=== PATIENT | male | born 1965 | race African-American/Black ===

== ENCOUNTER 2019-12-18 10:58 | Emergency (ER) | payer OTHER ==
--- NOTE | 2019-12-18 11:18 | RADIOLOGY REPORT (SQ) ---
EXAM DESCRIPTION: CHEST SINGLE VIEW IMAGES COMPLETED DATE/TIME: 12/18/2019 11:10 am REASON FOR STUDY: chest pain COMPARISON: None. EXAM PARAMETERS: NUMBER OF VIEWS: One view. TECHNIQUE: Single frontal radiographic view of the chest acquired. RADIATION DOSE: NA LIMITATIONS: None. FINDINGS: LUNGS AND PLEURA: No opacities, masses or pneumothorax. No pleural effusion. MEDIASTINUM AND HILAR STRUCTURES: No masses. Contour normal. HEART AND VASCULAR STRUCTURES: Heart normal in size. Normal vasculature. BONES: No acute findings. HARDWARE: None in the chest. OTHER: No other significant finding. IMPRESSION: NO ACUTE RADIOGRAPHIC FINDING IN THE CHEST. TECHNICAL DOCUMENTATION: JOB ID: [id number] 2010 [employer]- All Rights Reserved Reading location - IP/workstation name: [email or web address]
[2019-12-18] MEDS ORDERED: LIDOCAINE 2% VISCOUS SOLN 15 ML UDCUP PO ONE ×2 (11:27→12:41)
[2019-12-18] MEDS ORDERED: MAG HYDROX/AL HYDROX/SIMETH SUSP 30 ML UDCUP PO ONE ×2 (11:27→12:41)
[2019-12-18] MEDS ORDERED: METOCLOPRAMIDE HCL ORAL SOLN 10 MG/10 ML UDCUP PO ONE ×2 (11:27→12:41)
[2019-12-18 11:28] LABS: ABSOLUTE EOSINOPHILS # (AUTO) 0.1 10^3/uL (0.0-0.6); ABSOLUTE LYMPHOCYTES (AUTO) 1.7 10^3/uL (0.5-4.7); ABSOLUTE MONOCYTES (AUTO) 0.5 10^3/uL (0.1-1.4); ABSOLUTE NEUT (AUTO) 3.5 10^3/uL (1.7-8.2); BASOPHILS % (AUTO) 0.3 % (0-2); EOSINOPHILS % (AUTO) 2.1 % (0-6); HEMATOCRIT 45.9 % (37.9-51.0); HEMOGLOBIN 15.3 g/dL (13.5-17.0); LYMPHOCYTES % (AUTO) 29.1 % (13-45); MEAN CORPUSCULAR HEMOGLOBIN 26.9 pg (27.0-33.4); MEAN CORPUSCULAR HGB CONC 33.4 g/dL (32.0-36.0); MEAN CORPUSCULAR VOLUME 81 fl (80-97); MONOCYTES % (AUTO) 8.9 % (3-13); PLATELET COUNT 304 10^3/uL (150-450); RED CELL DISTRIBUTION WIDTH 14.3 % (11.5-14.0); SEGMENTED NEUTROPHILS % (AUTO) 59.6 % (42-78); TOTAL CELLS COUNTED % (AUTO) 100 %; WHITE BLOOD COUNT 5.9 10^3/uL (4.0-10.5)
--- NOTE | 2019-12-18 11:30 | ER Document Report ---
ED Medical Screen (RME) - General Chief Complaint: Chest Pain Stated Complaint: CHEST PAIN Time Seen by Provider: 12/18/19 11:12 Primary Care Provider: DESHAWN KIM [Primary Care Provider] - Follow up as needed Notes: Patient is a 54-year-old male brought in by EMS for chest pain that started a week ago. EMS ended up giving him sublingual nitroglycerin which eased off his chest pain a little bit and then ended up putting him on a nitroglycerin drip. Patient has been taking diclofenac since May. Denies any melena stools. Exam: S1, S2. Sinus rhythm on the monitor. Upon evaluation, patient was still on nitroglycerin drip. Nitroglycerin drip turned off, as blood pressure dropped down to systolic of 103. We will give the patient a GI cocktail. I have greeted and performed a rapid initial assessment of this patient. A comprehensive ED assessment and evaluation of the patient, analysis of test results and completion of medical decision making process will be conducted by an additional ED providers. Past Medical History - Social History Chew tobacco use (# tins/day): No Frequency of alcohol use: None Drug Abuse: None Physical Exam - Vital signs Vitals: Temp Pulse Ox 98.5 F 100 12/18/19 10:59 12/18/19 10:59 Course - Vital Signs Vital signs: Temp Pulse Resp BP Pulse Ox 98.5 F 100 12/18/19 10:59 12/18/19 10:59 - Laboratory Result Diagrams: 12/18/19 10:35 12/18/19 10:35 Doctor's Discharge - Discharge Referrals: DESHAWN KIM [Primary Care Provider] - Follow up as needed
[2019-12-18 12:02] LABS: ALBUMIN 4.6 g/dL (3.5-5.0); ALKALINE PHOSPHATASE 68 U/L (38-126); ANION GAP 12 (5-19); ASPARTATE AMINO TRANSFERASE 33 U/L (17-59); BILIRUBIN,TOTAL 0.6 mg/dL (0.2-1.3); BLOOD UREA NITROGEN 23 mg/dL (7-20); CARBON DIOXIDE 22 mmol/L (22-30); CHLORIDE 100 mmol/L (98-107); CREATINE KINASE 68 U/L (55-170); GLUCOSE 116 mg/dL (75-110); TOTAL PROTEIN 8.7 g/dL (6.3-8.2)
[2019-12-18 12:03] LABS: CREATINE KINASE MB 0.46 ng/mL (<4.55); TROPONIN I < 0.012 ng/mL
[2019-12-18] MEDS ORDERED: ONDANSETRON HCL INJ/PF 4 MG/2 ML SDV IV ONE (12:17)
[2019-12-18] MEDS ORDERED: NORMAL SALINE 1000 ML 1,000 ML IV ONE (12:41)
[2019-12-18] MEDS ORDERED: MORPHINE SULFATE 10 MG/ML INJ IV ONE (12:42)
[2019-12-18] MEDS ORDERED: PANTOPRAZOLE SODIUM 40 MG VIAL IV ONE (12:47)
--- NOTE | 2019-12-18 15:11 | EKG REPORT ---
SEVERITY:- ABNORMAL ECG - SINUS RHYTHM LEFT VENTRICULAR HYPERTROPHY : Confirmed by: Beck Gutierres MD 18-Dec-2019 15:10:08
--- NOTE | 2019-12-18 15:57 | RADIOLOGY REPORT (SQ) ---
EXAM DESCRIPTION: CT CHEST WITH; CT ABD/PELVIS WITH IV ORAL IMAGES COMPLETED DATE/TIME: 12/18/2019 3:34 pm; 12/18/2019 3:24 pm REASON FOR STUDY: chest pain/radiating to back; abd pain radiating to back COMPARISON: None. CONTRAST TYPE AND DOSE: contrast/concentration: Isovue 300.00 mmol/ml; Total Contrast Delivered: 100 .0 ml; Total Saline Delivered: 66.1 ml RENAL FUNCTION: BUN 23, creatinine 1.63 TECHNIQUE: CT scan of the chest performed using helical scanning technique with dynamic intravenous contrast injection. Images reviewed with lung, soft tissue and bone windows. Reconstructed coronal a nd sagittal MPR images reviewed. All images stored on PACS. CT scan of the abdomen and pelvis performed with intravenous and with oral contrastusing helical scan tacos technique with dynamic intravenous contrast injection. Images reviewed with lung, soft tissue a nd bone windows. Reconstructed coronal and sagittal MPR images reviewed. Delayed images for evaluat ion of the urinary system also acquired and evaluated. All images stored on PACS. All CT scanners at this facility use dose modulation, iterative reconstruction, and/or weight based d osing when appropriate to reduce radiation dose to as low as reasonably achievable (ALARA). [facility]: Dose Right [facility]: CareDose [facility]: Dose Right [facility]: Teradose 4D [facility]: Smart [employer] AS RADIATION DOSE: CT Rad equipment meets quality standard of care and radiation dose reduction techniq ues were employed. CTDIvol: 6.9 - 9.0 mGy. DLP: 1005 mGy-cm. . LIMITATIONS: None. FINDINGS: CHEST: LUNGS AND PLEURA: No opacities, nodules, masses. No pneumothorax. No effusions. HILAR AND MEDIASTINAL STRUCTURES: No identified masses or abnormal nodes. HEART AND VASCULAR STRUCTURES: No aneurysm or dissection. No central pulmonary emboli. No pericardi al effusion. HARDWARE: None. THYROID AND OTHER SOFT TISSUES: No masses. No adenopathy. BONES: No significant finding. OTHER: No other significant finding. ABDOMEN AND PELVIS: LIVER: Small hepatic cysts. No suspicious findings. SPLEEN: Normal size. No focal lesions. PANCREAS: No masses. No significant calcifications. No adjacent inflammation or peripancreatic fluid collections. Pancreatic duct not dilated. GALLBLADDER: No identified stones by CT criteria. No inflammatory changes to suggest cholecystitis. ADRENAL GLANDS: No significant masses or asymmetry. RIGHT KIDNEY AND URETER: No solid masses. No significant calcification. No hydronephrosis or hydroure ter. LEFT KIDNEY AND URETER: No solid masses. No significant calcification. No hydronephrosis or hydrouret er. AORTA AND VESSELS: No aneurysm. No dissection. Renal arteries, SMA, celiac without stenosis. RETROPERITONEUM: No retroperitoneal adenopathy, hemorrhage or masses. BOWEL AND PERITONEAL CAVITY: No masses or inflammatory changes. No free fluid or peritoneal masses. APPENDIX: Not visualized. ABDOMINAL WALL: No masses. No hernias. PELVIS: No mass or free fluid. Normal bladder. BONES: No significant or acute findings. OTHER: No other significant finding. IMPRESSION: NORMAL CT OF THE CHEST WITH IV CONTRAST. SMALL HEPATIC CYSTS. NO ACUTE FINDINGS IN THE ABDOMEN OR PELVIS. TECHNICAL DOCUMENTATION: JOB ID: [id number] Quality ID # [id number]: Final reports with documentation of one or more dose reduction techniques (e.g., Au tomated exposure control, adjustment of the mA and/or kV according to patient size, use of iterative reconstruction technique) 2010 [employer]- All Rights Reserved Reading location - IP/workstation name: [email or web address]
--- NOTE | 2019-12-18 18:00 | ER Document Report ---
Entered by NASIR ALBRECHT SCRIBE 12/18/19 1221 Acting as scribe for:KATIE ELLIS MD ED Cardiac - General Chief Complaint: Chest Pain Stated Complaint: CHEST PAIN Time Seen by Provider: 12/18/19 11:12 Primary Care Provider: DESHAWN KIM [NO LOCAL MD] - Follow up as needed Information source: Patient Notes: This 54-year-old male patient presents to the emergency department today with complaints of a one-week history of chest pain and epigastric abdominal pain t hat radiates to his back. Patient reports that when the pain began he was at his house sleeping. Patient states he had similar pain 10 to 15 years ago but it was not as severe and it was GERD. Patient indicates that swallowing food or liquids exacerbates his pain. Patient also mentions night sweats, weight loss that he is unable to quantify, fevers, and chills. Patient denies any throat pain, diarrhea, or black/tarry stools. - Related Data Allergies/Adverse Reactions: No Known Allergies Allergy (Unverified 12/18/19 12:01) Past Medical History - General Information source: Patient - Social History Smoking Status: Current Some Day Smoker - says he quit one week ago when pain began Cigarette use (# per day): Yes Chew tobacco use (# tins/day): No Frequency of alcohol use: None Drug Abuse: None Lives with: Family Family History: Reviewed & Not Pertinent Patient has homicidal ideation: No Musculoskeletal Medical History: Reports Hx Arthritis Surgical Hx: Negative Review of Systems - Review of Systems Constitutional: No symptoms reported EENT: No symptoms reported Cardiovascular: See HPI, Chest pain Respiratory: No symptoms reported Gastrointestinal: See HPI, Abdominal pain, Other - pain with swallowing Genitourinary: No symptoms reported Male Genitourinary: No symptoms reported Musculoskeletal: No symptoms reported Skin: No symptoms reported Hematologic/Lymphatic: No symptoms reported Neurological/Psychological: No symptoms reported -: Yes All other systems reviewed and negative Physical Exam - Vital signs Vitals: Temp Pulse Ox 98.5 F 100 12/18/19 10:59 12/18/19 10:59 - Notes Notes: Physical Exam: General: Alert, appears well. HEENT: Normocephalic. Atraumatic. PERRL. Extraocular movements intact. Oropharynx clear. Neck: Supple. Non-tender. Respiratory: No respiratory distress. Clear and equal breath sounds bilaterally. Cardiovascular: Regular rate and rhythm. Abdominal: Epigastric tenderness with palpation. No distension. Normal Bowel Sounds. Back: No gross abnormalities. Extremities: Moves all four extremities. Upper extremities: Normal inspection. Normal ROM. Lower extremities: Normal inspection. No edema. Normal ROM. Neurological: Normal cognition. AAOx4. Normal speech. Psychological: Normal affect. Normal Mood. Skin: Warm. Dry. Normal color. Course - Re-evaluation Re-evalutation: 12/18/19 17:50 Patient resting better at this time not showing signs of distress pain is improved. 12/18/19 17:53 Inasmuch as patient has an elevated calcium and elevated total protein it would be babcock for patient to follow-up with primary care doctor for further evaluations and of his calcium and elevated protein and pain in his back and abdomen. No acute process was noted on today's evaluation. 12/18/19 17:58 I recommended that patient follow-up with a hematology oncology doctor regarding the elevated protein elevated calcium in a patient with chronic back pain chest pain abdominal pain and night sweats - Vital Signs Vital signs: Temp Pulse Resp BP Pulse Ox 98.5 F 13 115/88 H 96 12/18/19 10:59 12/18/19 14:01 12/18/19 14:01 12/18/19 14:01 12/18/19 17:51 Vital signs stable - Laboratory Result Diagrams: 12/18/19 10:35 12/18/19 10:35 Laboratory results interpreted by me: 12/18/19 12/18/19 10:35 10:35 RBC 5.70 H MCH 26.9 L RDW 14.3 H Sodium 134.1 L BUN 23 H Creatinine 1.63 H Est GFR ( Amer) 54 L Est GFR (MDRD) Non-Af 44 L Glucose 116 H Calcium 11.0 H ALT 52 H Total Protein 8.7 H 12/18/19 17:51 Labs within normal range except for elevated creatinine 1.6. Also patient has noted calcium 11.0 and total protein elevated at 8.7. - Diagnostic Test Radiology reviewed: Image reviewed, Reports reviewed Radiology results interpreted by me: 12/18/19 17:52 CT of chest with contrast shows no acute process CT abdomen pelvis with IV and oral contrast shows no acute process. Of note there is some hepatic cysts present otherwise no other acute process. - EKG Interpretation by Me Additional EKG results interpreted by me: 12/18/19 17:53 Twelve-lead EKG shows normal sinus rhythm and rate left ventricular hypertrophy noted by voltage criteria. No other acute ST-T wave changes. Discharge - Discharge Clinical Impression: Back pain, Chest pain, Abdominal pain, Nausea & vomiting, Hypercalcemia, Elevated total protein Condition: Stable Disposition: HOME, SELF-CARE Instructions: Vomiting ([facility]), Chest Pain of Unclear Cause ([facility]), Prilosec (Acid Pump Inhibitor) ([facility]) Prescriptions: Omeprazole 40 mg PO DAILY #30 capsule. Ondansetron [Zofran Odt 4 mg Tablet] 1 - 2 tab PO Q4H PRN #15 tab.rapdis PRN Reason: For Nausea/Vomiting Referrals: LOCALMD,NO [NO LOCAL MD] - Follow up as needed ALBAN GARCIA MD [ACTIVE STAFF] - Follow up in 3-5 days I personally performed the services described in the documentation, reviewed and edited the documentation which was dictated to the scribe in my presence, and it accurately records my words and actions.
[2019-12-18 18:39] VITALS: BP 125/86
== END 2019-12-18 18:36 | disposition home or self-care (01) ==
LOC: ER 10:58
DX: E83.52 Hypercalcemia (principal); R79.89 Other specified abnormal findings of blood chemistry; R07.9 Chest pain, unspecified; M54.9 Dorsalgia, unspecified; R10.9 Unspecified abdominal pain; R11.2 Nausea with vomiting, unspecified; F17.210 Nicotine dependence, cigarettes, uncomplicated
CPT/HCPCS: 93005; 99285; 96361; 96374; 96375; 36415; 82553; 82550; 83690; 85025; 80053; 84484; 71045; 71260; 74177; 93010; J3490; J2270; C9113; J2405; J7030

== ENCOUNTER 2019-12-26 04:16 | Emergency (ER) | payer OTHER ==
[2019-12-26 04:24] VITALS: BP 136/77
[2019-12-26] MEDS ORDERED: HYDROMORPHONE HCL INJ/PF 2 MG/ML AMPULE IV ONE ×4 (06:17→13:57)
[2019-12-26] MEDS ORDERED: NORMAL SALINE 500 ML IV ONE (06:18)
[2019-12-26 06:53] LABS: ABSOLUTE BASOPHILS # (AUTO) 0.1 10^3/uL (0.0-0.2); ABSOLUTE EOSINOPHILS # (AUTO) 0.2 10^3/uL (0.0-0.6); ABSOLUTE LYMPHOCYTES (AUTO) 1.5 10^3/uL (0.5-4.7); ABSOLUTE MONOCYTES (AUTO) 0.7 10^3/uL (0.1-1.4); ABSOLUTE NEUT (AUTO) 5.6 10^3/uL (1.7-8.2); BASOPHILS % (AUTO) 0.7 % (0-2); EOSINOPHILS % (AUTO) 1.9 % (0-6); HEMATOCRIT 42.4 % (37.9-51.0); HEMOGLOBIN 14.2 g/dL (13.5-17.0); LYMPHOCYTES % (AUTO) 19.1 % (13-45); MEAN CORPUSCULAR HEMOGLOBIN 26.7 pg (27.0-33.4); MEAN CORPUSCULAR HGB CONC 33.5 g/dL (32.0-36.0); MEAN CORPUSCULAR VOLUME 80 fl (80-97); MONOCYTES % (AUTO) 8.8 % (3-13); PLATELET COUNT 394 10^3/uL (150-450); RED BLOOD COUNT 5.31 10^6/uL (4.35-5.55); RED CELL DISTRIBUTION WIDTH 14.6 % (11.5-14.0); SEGMENTED NEUTROPHILS % (AUTO) 69.5 % (42-78); TOTAL CELLS COUNTED % (AUTO) 100 %
[2019-12-26 07:14] LABS: APPEARANCE,URINE CLEAR; BILIRUBIN,URINE NEGATIVE (NEGATIVE); COLOR,URINE YELLOW; GLUCOSE, URINE NEGATIVE (NEGATIVE); KETONES,URINE NEGATIVE (NEGATIVE); LEUKOCYTE ESTERASE,URINE NEGATIVE (NEGATIVE); NITRITE,URINE NEGATIVE (NEGATIVE); PROTEIN,URINE NEGATIVE (NEGATIVE); URINE SPECIFIC GRAVITY 1.013; UROBILINOGEN,URINE NEGATIVE mg/dL (<2.0)
[2019-12-26 07:24] LABS: ALBUMIN 4.4 g/dL (3.5-5.0); ALKALINE PHOSPHATASE 72 U/L (38-126); ANION GAP 10 (5-19); ASPARTATE AMINO TRANSFERASE 28 U/L (17-59); BILIRUBIN,TOTAL 0.5 mg/dL (0.2-1.3); BLOOD UREA NITROGEN 18 mg/dL (7-20); CARBON DIOXIDE 26 mmol/L (22-30); CHLORIDE 101 mmol/L (98-107); GLUCOSE 102 mg/dL (75-110); TOTAL PROTEIN 7.8 g/dL (6.3-8.2)
[2019-12-26 07:33] LABS: URINE AMPHETAMINES SCREEN NEGATIVE; URINE BARBITURATES SCREEN NEGATIVE; URINE BENZODIAZEPINES SCREEN NEGATIVE; URINE COCAINE SCREEN NEGATIVE; URINE MARIJUANA (THC) SCREEN NEGATIVE; URINE METHADONE SCREEN NEGATIVE; URINE PHENCYCLIDINE SCREEN NEGATIVE
[2019-12-26] MEDS ORDERED: PSEUDOEPHEDRINE HCL 30 MG TABLET PO ONE (10:06)
[2019-12-26] MEDS ORDERED: TERBUTALINE SULFATE INJ/PF 1 MG/1 ML SDV SUBCUT ONE (10:06)
[2019-12-26] MEDS ORDERED: LIDOCAINE 1% INJ-PF (10 MG/ML) 30 ML SDV INJ ONE (11:36)
[2019-12-26] MEDS ORDERED: PHENYLEPHRINE HCL INJ/PF 10 MG/1 ML SDV IV ONE (11:45)
[2019-12-26] MEDS: LIDOCAINE 2% INJ-PF (20 MG/ML) 2 ML AMPUL INJ ONE ×2 (12:09→12:58)
[2019-12-26] MEDS ORDERED: FENTANYL CITRATE INJ/PF 100 MCG/2 ML AMPUL ONE (12:26)
--- NOTE | 2019-12-26 14:16 | ER Document Report ---
Entered by MARYLOU DAY SCRIBE 12/26/19 0613 Acting as scribe for:KATIE ELLIS MD ED General - General Chief Complaint: Penile Problem Stated Complaint: PENILE PROBLEM [facility]: [facility] [[facility]] - Follow up as needed Information source: Patient Notes: This 54 year old male patient presents to the emergency department today with penile pain. Patient reports an erection the past x2 days, with pain. Patient states this has not happened before and denies sexual intercourse when these symptoms began. Patient states he has been on Trazadone the past x2 years to help him sleep and this may be a reason for his symptoms. - Related Data Allergies/Adverse Reactions: No Known Allergies Allergy (Unverified 12/18/19 12:01) Past Medical History - General Information source: Patient - Social History Smoking Status: Current Every Day Smoker Cigarette use (# per day): Yes Chew tobacco use (# tins/day): No Frequency of alcohol use: Rare Drug Abuse: None Lives with: Family Family History: Reviewed & Not Pertinent Musculoskeletal Medical History: Reports Hx Arthritis Surgical Hx: Negative Review of Systems - Review of Systems Constitutional: No symptoms reported EENT: No symptoms reported Cardiovascular: No symptoms reported Respiratory: No symptoms reported Gastrointestinal: No symptoms reported Genitourinary: No symptoms reported Male Genitourinary: See HPI, Other - Penile pain, Erection Musculoskeletal: No symptoms reported Skin: No symptoms reported Hematologic/Lymphatic: No symptoms reported Neurological/Psychological: No symptoms reported -: Yes All other systems reviewed and negative Physical Exam - Vital signs Vitals: Temp Pulse Resp BP Pulse Ox 98.5 F 108 H 14 136/77 H 100 12/26/19 04:23 12/26/19 04:23 12/26/19 04:23 12/26/19 04:23 12/26/19 04:23 - General General appearance: Appears well, Alert - HEENT Head: Normocephalic, Atraumatic Eyes: Normal Pupils: PERRL - Respiratory Respiratory status: No respiratory distress Chest status: Nontender Breath sounds: Normal Chest palpation: Normal - Cardiovascular Rhythm: Regular Heart sounds: Normal auscultation Murmur: No - Abdominal Inspection: Normal Distension: No distension Bowel sounds: Normal Tenderness: Nontender - Genitourinary Notes: Inspection: Penile erection. Uncircumcised male. - Extremities General upper extremity: Normal inspection. No: Edema General lower extremity: Normal inspection. No: Edema - Neurological Neuro grossly intact: Yes Cognition: Normal Orientation: AAOx4 Speech: Normal - Psychological Associated symptoms: Normal affect, Normal mood - Skin Skin Temperature: Warm Skin Moisture: Dry Skin Color: Normal Course - Re-evaluation Re-evalutation: 12/26/19 12:58 Patient continued to have priapism erection now going on 2-1/2hours. 12/26/19 12:[address] Santizo and attempted reduction of priapism was done with his instructions on the dosing and administration of phenylephrine. This procedure was directed by my colleague Dr. Oro see note in chart. In conclusion there was some improvement in the priapism however not relieved completely. Spoke to Dr. Santizo and he suggested patient be transferred [facility]. 12/26/19 14:15 EMS transport team is available to take patient at this time to [facility] in [place], [place]. Patient is medically stable at this time for transport. - Vital Signs Vital signs: Temp Pulse Resp BP Pulse Ox 98.5 F 108 H 14 136/77 H 100 12/26/19 04:26 12/26/19 04:23 12/26/19 04:23 12/26/19 04:23 12/26/19 04:23 12/26/19 12:59 Vital signs stable - Laboratory Result Diagrams: 12/26/19 06:35 12/26/19 06:35 Laboratory results interpreted by me: 12/26/19 06:35 MCH 26.7 L RDW 14.6 H Laboratories within normal limits Discharge - Discharge Clinical Impression: Priapism Condition: Good Disposition: [facility] Additional Instructions: ED to ED transfer [facility] [place] [facility]. Referrals: [facility] [Primary Care Provider] - Follow up as needed I personally performed the services described in the documentation, reviewed and edited the documentation which was dictated to the scribe in my presence, and it accurately records my words and actions.
--- NOTE | 2019-12-26 19:58 | ER Document Report ---
ED Medical Screen (RME) - General Chief Complaint: Penile Problem Stated Complaint: PENILE PROBLEM [facility]: [facility] [[facility]] - Follow up as needed - Related Data Allergies/Adverse Reactions: No Known Allergies Allergy (Unverified 12/18/19 12:01) Past Medical History - Social History Cigarette use (# per day): Yes Chew tobacco use (# tins/day): No Frequency of alcohol use: Rare Drug Abuse: None Musculoskeltal Medical History: Reports Hx Arthritis Surgical Hx: Negative Physical Exam - Vital signs Vitals: Temp Pulse Resp BP Pulse Ox 98.5 F 108 H 14 136/77 H 100 12/26/19 04:23 12/26/19 04:23 12/26/19 04:23 12/26/19 04:23 12/26/19 04:23 Course - Vital Signs Vital signs: Temp Pulse Resp BP Pulse Ox 98.5 F 108 H 14 136/77 H 100 12/26/19 04:26 12/26/19 04:23 12/26/19 04:23 12/26/19 04:23 12/26/19 04:23 - Laboratory Result Diagrams: 12/26/19 06:35 12/26/19 06:35 Laboratory results interpreted by me: 12/26/19 06:35 MCH 26.7 L RDW 14.6 H Procedures - Needle Aspiration Dorsal Type of Aspiration: Puncture - This is actually a note for management of priapism. Please bill accordingly. Procedure in detail: Patient was consented verbally Penis and pubic region were sterilely draped and cleansed with Shur- Clens. Using 1% lidocaine a penile block was obtained with 20 cc of lidocaine. This resulted in excellent anesthesia. The rest of the penis was prepped and draped. Using an 18-gauge needle, both sides of the corpus cavernosum were punctured and a very small amount of very old clotted dark black blood was aspirated. Attempted flushing with sterile saline on both sides and total aspirated volume was only about 2 cc total. Patient was then injected with diluted phenylephrine according to recommendations from urology at [facility]. Repeat attempt was made through existing needles to aspirate further blood which was unsuccessful. There was a very mild amount of detumescence but the priapism remains. The penis was cleansed, Band-Aids were applied to puncture sites and Coban was wrapped pressure dressing around the penis. Patient tolerated the procedure well. Doctor's Discharge - Discharge Clinical Impression: Priapism Condition: Good Disposition: [facility] Additional Instructions: ED to ED transfer from [place] to [facility] emergency department in [facility]. Referrals: [facility] [Primary Care Provider] - Follow up as needed
== END 2019-12-26 11:47 | disposition short-term general hospital (02) ==
LOC: ER 04:16
DX: N48.30 Priapism, unspecified (principal); N48.89 Other specified disorders of penis; F17.210 Nicotine dependence, cigarettes, uncomplicated
CPT/HCPCS: 54220; 96376; 99284; 96372; 96361; 96374; 96375; 36415; 85025; 80053; 81001; 80307; J3010; J3490; J1170; J2370; J3105; J7040